=== PATIENT | male | born 1990 | race Caucasian/White ===

== ENCOUNTER → 2016-07-06 | Outpatient (CLI) | payer OTHER ==
--- NOTE | 2016-07-06 15:31 | XR ---
EXAMINATION TYPE: XR hand complete LT DATE OF EXAM: 07/06/2016 3:27 PM COMPARISON: NONE HISTORY: Pain TECHNIQUE: Three views are submitted. FINDINGS: The osseous structures are intact. The joint spaces are preserved and there is no acute fracture or dislocation. The soft tissues of the distal phalanx of the second digit there is radiopaque material which may represent foreign body. Correlate clinically. This may be artifactual as it is not clearly depicted on the additional images. IMPRESSION: 1. No definite acute fracture or dislocation if symptoms persist, follow-up study in 7 to 10 days wo uld be suggested. 2. Overlying the volar soft tissues of the distal phalanx second digit there is radiopaque material w hich may be artifactual rather than related to foreign body correlate clinically.
--- NOTE | 2016-07-06 15:32 | XR ---
EXAMINATION TYPE: XR wrist complete LT DATE OF EXAM: 07/06/2016 3:27 PM COMPARISON: NONE HISTORY: Pain TECHNIQUE: Four views submitted. FINDINGS: The osseous structures are intact. The joint spaces are preserved and there is no acute fracture or dislocation. IMPRESSION: 1. No definite acute fracture or dislocation if symptoms persist, follow-up study in 7 to 10 days wo uld be suggested
== END | disposition home or self-care (01) ==
LOC: RADXRMAIN 15:06
PROVIDERS: ATTEND Emergency Medicine
DX: S67.22XA Crushing injury of left hand, initial encounter (principal)

== ENCOUNTER 2016-09-10 18:11 | Emergency (ER) | payer OTHER ==
--- NOTE | 2016-09-10 19:06 | ED ---
Upper Extremity HPI - General Chief Complaint: Extremity Injury, Upper Stated Complaint: Shoulder/Back Pain [facility] Time Seen by Provider: 09/10/16 18:48 Source: patient, RN notes reviewed, old records reviewed Mode of arrival: ambulatory Limitations: no limitations - History of Present Illness Initial Comments: 25-year-old male presents emergency Department chief complaint of left shoulder pain. Patient reports that he was at work and he was trying to catch himself from a fall. Patient reports he fell with his left arm straight out and felt a shooting pain from his hand to his shoulder. He reports that he felt a snap and a pop in his shoulder. He states the pain is between shoulder blades and his spine. - Related Data Previous Rx's Medication Instructions Recorded Cyclobenzaprine [Flexeril] 10 mg PO TID #12 tab 09/10/16 Ibuprofen [Motrin] 600 mg PO Q8HR PRN #20 tab 09/10/16 Allergies Allergy/AdvReac Type Severity Reaction Status Date / Time No Known Allergies Allergy Verified 09/10/16 18:46 Review of Systems ROS Statement: Those systems with pertinent positive or pertinent negative responses have been documented in the HPI. ROS Other: All systems not noted in ROS Statement are negative. Past Medical History Past Medical History: No Reported History History of Any Multi-Drug Resistant Organisms: None Reported Past Surgical History: No Surgical Hx Reported Past Psychological History: No Psychological Hx Reported Smoking Status: Current every day smoker Past Alcohol Use History: Occasional Past Drug Use History: None Reported General Exam - General Exam Comments Initial Comments: 25-year-old male. No acute distress. Limitations: no limitations General appearance: alert, in no apparent distress Head exam: Present: atraumatic, normocephalic, normal inspection Eye exam: Present: normal appearance, PERRL, EOMI. Absent: scleral icterus, conjunctival injection, periorbital swelling ENT exam: Present: normal exam, mucous membranes moist Neck exam: Present: normal inspection. Absent: tenderness, meningismus, lymphadenopathy Respiratory exam: Present: normal lung sounds bilaterally. Absent: respiratory distress, wheezes, rales, rhonchi, stridor Cardiovascular Exam: Present: regular rate, normal rhythm, normal heart sounds. Absent: systolic murmur, diastolic murmur, rubs, gallop, clicks GI/Abdominal exam: Present: soft, normal bowel sounds. Absent: distended, tenderness, guarding, rebound, rigid Extremities exam: Present: normal inspection, full ROM, normal capillary refill. Absent: tenderness, pedal edema, joint swelling, calf tenderness Left Shoulder Exam: Present: normal inspection, full ROM, tenderness (Patient has some tenderness between the left shoulder blade and the thoracic spine.) Upper Arm exam: Present: normal inspection, full ROM Elbow exam: Present: normal inspection, full ROM Forearm Wrist exam: Present: normal inspection, full ROM Hand Wrist exam: Present: normal inspection, full ROM Back exam: Present: normal inspection Neurological exam: Present: alert, oriented X3, CN II-XII intact Course Vital Signs 09/10/16 18:44 Temperature 97.8 F Pulse Rate 70 Respiratory 20 Rate Blood Pressure 119/73 O2 Sat by Pulse 98 Oximetry Disposition Clinical Impression: Left shoulder strain Disposition: HOME SELF-CARE Condition: Good Instructions: Shoulder Sprain (ED) Additional Instructions: Patient is to rest, apply ice over the shoulder. Return to the emergency department if any alarming signs or symptoms occur. Prescriptions: Cyclobenzaprine [Flexeril] 10 mg PO TID #12 tab Ibuprofen [Motrin] 600 mg PO Q8HR PRN #20 tab PRN Reason: Pain Referrals: None,Stated [Primary Care Provider] - 1-2 days Beth Power MD [STAFF PHYSICIAN] - 1-2 days Time of Disposition: 20:15
--- NOTE | 2016-09-10 20:03 | XR ---
EXAMINATION TYPE: XR shoulder complete LT DATE OF EXAM: 09/10/2016 COMPARISON: NONE HISTORY: Shoulder pain TECHNIQUE: 3 views FINDINGS: I see no fracture nor dislocation. Joint spaces are normal. There are no pathologic calcifi cations. IMPRESSION: Normal left shoulder
--- NOTE | 2016-09-10 20:04 | XR ---
EXAMINATION TYPE: XR thoracic spine 2V DATE OF EXAM: 09/10/2016 COMPARISON: NONE HISTORY: Pain TECHNIQUE: 3 views FINDINGS: Thoracic vertebra have normal spacing and alignment. Posterior elements are intact. There i s no paraspinal mass. There is no compression fracture. IMPRESSION: Normal thoracic spine.
[2016-09-10] MEDS ORDERED: CYCLOBENZAPRINE 10MG STARTER 3 TAB BTL PO STA (20:20)
[2016-09-10] MEDS ORDERED: ACET/COD 300 MG/30 MG STARTER PACK 6 TAB BTL PO STA (20:20)
[2016-09-10 20:35] VITALS: BP 125/75; PULSE 72; RESP 18; TEMP 98
== END 2016-09-10 20:35 | disposition home or self-care (01) ==
LOC: EC 18:11
DX: S46.912A Strain of unspecified muscle, fascia and tendon at shoulder and upper arm level, left arm, initial encounter (principal); F17.200 Nicotine dependence, unspecified, uncomplicated; X50.9XXA Other and unspecified overexertion or strenuous movements or postures, initial encounter; Y93.89 Activity, other specified; Y99.0 Civilian activity done for income or pay; Y92.69 Other specified industrial and construction area as the place of occurrence of the external cause
CPT/HCPCS: 72070; 99284

== ENCOUNTER → 2016-09-14 | Outpatient (CLI) | payer OTHER ==
--- NOTE | 2016-09-14 10:52 | XR ---
Cervical spine HISTORY: Cervical sprain, S13.4XXA 5 views of the cervical spine No comparisons There is no significant foraminal encroachment. Cervical vertebral bodies show preserved height and a lignment. Disc spaces and prevertebral soft tissues are normal. IMPRESSION: No acute osseous abnormality.
== END | disposition home or self-care (01) ==
LOC: RADXRMAIN 10:22
PROVIDERS: ATTEND Emergency Medicine
DX: S13.4XXA Sprain of ligaments of cervical spine, initial encounter (principal)
CPT/HCPCS: 72050

== ENCOUNTER 2016-12-20 14:42 | Inpatient (IN) | payer OTHER ==
[2016-12-20] MEDS ORDERED: RX INFO: IV CONTRAST WAS GIVEN 1 EACH MISC MISCELLANE PRN (15:13)
[2016-12-20] MEDS ORDERED: MORPHINE SULFATE 10 MG/ML SYRINGE IV STA (15:13)
[2016-12-20] MEDS ORDERED: ONDANSETRON 4 MG/2 ML VIAL IVP STA (15:13)
[2016-12-20] MEDS ORDERED: PANTOPRAZOLE 40 MG/10 ML VIAL IVP STA (15:13)
[2016-12-20 15:38] LABS: Basophils % (A) 0 %; CH 30.6; CHCM 34.1; Eosinophils # (A) 0.2 k/uL (0-0.7); Eosinophils % (A) 1 %; HCT 43.3 % (39.0-53.0); HDW 2.23; HGB 14.5 gm/dL (13.0-17.5); Luc # (Auto) 0.12; Luc % (Auto) 1; Lymphocytes % (A) 19 %; MCH 30.3 pg (25.0-35.0); MCHC 33.5 g/dL (31.0-37.0); MCV 90.4 fL (80.0-100.0); Monocytes # (A) 0.6 k/uL (0-1.0); Monocytes % (A) 6 %; Neutrophils # (A) 7.7 k/uL (1.3-7.7); Neutrophils % (A) 73 %; RBC 4.79 m/uL (4.30-5.90); RDW 14.3 % (11.5-15.5); WBC 10.5 k/uL (3.8-10.6); WBC (Perox) 10.89
[2016-12-20 15:47] LABS: ALT 31 U/L (21-72); AST 26 U/L (17-59); Alkaline Phosphatase 56 U/L (38-126); Amylase 145 U/L (30-110); Anion Gap 9 mmol/L; Blood Urea Nitrogen 17 mg/dL (9-20); Calcium 9.7 mg/dL (8.4-10.2); Carbon Dioxide 26 mmol/L (22-30); Chloride 105 mmol/L (98-107); Glucose 82 mg/dL (74-99); Non-African American GFR(MDRD) >60 (>60 ml/min/1.73 sqM); Potassium 4.1 mmol/L (3.5-5.1); Sodium 140 mmol/L (137-145); Total Bilirubin 0.6 mg/dL (0.2-1.3); Total Protein 7.1 g/dL (6.3-8.2)
--- NOTE | 2016-12-20 16:02 | CT ---
EXAMINATION TYPE: CT abdomen pelvis w con DATE OF EXAM: 12/20/2016 COMPARISON: NONE HISTORY: Patient complains of epigastric pain, nausea, vomiting, and diarrhea. CT DLP: 459.3 mGycm Automated exposure control for dose reduction was used. TECHNIQUE: Helical acquisition of images from the lung bases through the pelvis have been completed. CONTRAST: Performed without Oral Contrast and with IV Contrast, patient injected with 100 mL of Omnipaque 300. FINDINGS: At the origin of celiac axis there is a focal area of low-attenuation seen on axial image 1 7, sagittal image 59. Question origin stenosis of the celiac axis. LUNG BASES: No significant abnormality is appreciated. AORTA: No significant abnormality is appreciated. LIVER/GB: No significant abnormality is appreciated. PANCREAS: No significant abnormality is seen. SPLEEN: No significant abnormality is seen. ADRENALS: No significant abnormality is seen. KIDNEYS: No significant abnormality is seen. REPRODUCTIVE ORGANS: No significant abnormality is seen BOWEL: Fluid-filled loops of small and large bowel are present. The appendix is normal. FREE AIR: No Free Air visible. ASCITES: None visible. PELVIC ADENOPATHY: None visualized. RETROPERITONEAL ADENOPATHY: No Retroperitoneal Adenopathy visible. URINARY BLADDER: No significant abnormality is seen. OSSEOUS STRUCTURES: No significant abnormality is seen. IMPRESSION: CORRELATE FOR ENTERITIS. INDETERMINATE ABNORMAL DENSITY AT THE ORIGIN OF THE CELIAC AXIS, THERE COULD BE A PROXIMAL STENOSIS, POST STENOTIC DILATATION, DIFFICULT TO EXCLUDE A SMALL EMBOLUS. CONSIDER RSUS ALEJANDRA CONSULT. Report relayed to Dr. Canada telephonically at the time of interpretation.
[2016-12-20] MEDS ORDERED: diphenhydrAMINE 50 MG/ML 1 ML VIAL IVP STA (16:28)
[2016-12-20] MEDS ORDERED: NALOXONE 0.4 MG/ML 1 ML VIAL IV PRN (16:49)
--- NOTE | 2016-12-20 16:49 | ED ---
Abdominal Pain HPI - General Chief Complaint: Abdominal Pain Stated Complaint: abdominal pain/vomiting blood Time Seen by Provider: 12/20/16 14:55 Source: patient Mode of arrival: ambulatory Limitations: no limitations - History of Present Illness Initial Comments: Patient presents with abdominal pain. He also has nausea. Pain is epigastric. It does not radiate anywhere. Nothing makes it better or worse. He denies any chest pain. He has no diarrhea. He has no blood in the stool. He has no black or tarry stool. He had some vomiting, and thought there was some blood in the. He has no neck pain or stiffness. He has no headache. - Related Data Home Medications Medication Instructions Recorded Confirmed No Known Home Medications [No 12/20/16 12/20/16 Known Home Medications] Allergies Allergy/AdvReac Type Severity Reaction Status Date / Time No Known Allergies Allergy Verified 12/20/16 15:06 Review of Systems ROS Statement: Those systems with pertinent positive or pertinent negative responses have been documented in the HPI. ROS Other: All systems not noted in ROS Statement are negative. Past Medical History Past Medical History: No Reported History History of Any Multi-Drug Resistant Organisms: None Reported Past Surgical History: No Surgical Hx Reported Past Psychological History: No Psychological Hx Reported Smoking Status: Current every day smoker Past Alcohol Use History: None Reported Past Drug Use History: None Reported General Exam Limitations: no limitations General appearance: alert, in no apparent distress Head exam: Present: atraumatic, normocephalic, normal inspection Eye exam: Present: normal appearance, PERRL, EOMI. Absent: scleral icterus, conjunctival injection, periorbital swelling ENT exam: Present: normal exam, mucous membranes moist Neck exam: Present: normal inspection. Absent: tenderness, meningismus, lymphadenopathy Respiratory exam: Present: normal lung sounds bilaterally. Absent: respiratory distress, wheezes, rales, rhonchi, stridor Cardiovascular Exam: Present: regular rate, normal rhythm, normal heart sounds. Absent: systolic murmur, diastolic murmur, rubs, gallop, clicks GI/Abdominal exam: Present: soft, tenderness, normal bowel sounds. Absent: distended, guarding, rebound, rigid Extremities exam: Present: normal inspection, full ROM, normal capillary refill. Absent: tenderness, pedal edema, joint swelling, calf tenderness Back exam: Present: normal inspection Neurological exam: Present: alert, oriented X3, CN II-XII intact Psychiatric exam: Present: normal affect, normal mood Skin exam: Present: warm, dry, intact, normal color. Absent: rash Course Vital Signs 12/20/16 14:51 Temperature 98.6 F Pulse Rate 86 Respiratory 18 Rate Blood Pressure 134/72 O2 Sat by Pulse 98 Oximetry Medical Decision Making - Medical Decision Making Patient presents with abdominal pain. CBC and electrolytes are normal. CAT scan reveals a suspicious finding at the celiac region. Additionally, his pancreas enzymes are extremely elevated. I'm giving the patient IV fluids. He will be admitted to the hospital for further evaluation and management of these multiple conditions. - Lab Data Result diagrams: 12/20/16 15:25 12/20/16 15:25 Lab Results 12/20/16 12/20/16 Range/Units 15:25 15:25 WBC 10.5 (3.8-10.6) k/uL RBC 4.79 (4.30-5.90) m/uL Hgb 14.5 (13.0-17.5) gm/dL Hct 43.3 (39.0-53.0) % MCV 90.4 (80.0-100.0) fL MCH 30.3 (25.0-35.0) pg MCHC 33.5 (31.0-37.0) g/dL RDW 14.3 (11.5-15.5) % Plt Count 185 (150-450) k/uL Neutrophils % 73 % Lymphocytes % 19 % Monocytes % 6 % Eosinophils % 1 % Basophils % 0 % Neutrophils # 7.7 (1.3-7.7) k/uL Lymphocytes # 2.0 (1.0-4.8) k/uL Monocytes # 0.6 (0-1.0) k/uL Eosinophils # 0.2 (0-0.7) k/uL Basophils # 0.0 (0-0.2) k/uL Sodium 140 (137-145) mmol/L Potassium 4.1 (3.5-5.1) mmol/L Chloride 105 (98-107) mmol/L Carbon Dioxide 26 (22-30) mmol/L Anion Gap 9 mmol/L BUN 17 (9-20) mg/dL Creatinine 1.06 (0.66-1.25) mg/dL Est GFR (MDRD) Af Amer >60 (>60 ml/min/1.73 sqM) Est GFR (MDRD) Non-Af >60 (>60 ml/min/1.73 sqM) Glucose 82 (74-99) mg/dL Calcium 9.7 (8.4-10.2) mg/dL Total Bilirubin 0.6 (0.2-1.3) mg/dL AST 26 (17-59) U/L ALT 31 (21-72) U/L Alkaline Phosphatase 56 (38-126) U/L Total Protein 7.1 (6.3-8.2) g/dL Albumin 4.3 (3.5-5.0) g/dL Amylase 145 H (30-110) U/L Lipase 1223 H (23-300) U/L Disposition Clinical Impression: Pancreatitis Disposition: ADMITTED IP TO THIS HOSP Condition: Fair Referrals: Huan Rivera MD [Primary Care Provider] - 1-2 days Time of Disposition: 16:49
[2016-12-20] MEDS: DEXTROSE 5%-0.9% NACL 1,000 ML IV SCH (18:34)
[2016-12-20] MEDS: MORPHINE SULFATE 10 MG/ML SYRINGE IV PRN (18:34)
[2016-12-20] MEDS: traMADol 50 MG TAB PO PRN (21:54)
[2016-12-20] MEDS: NICOTINE 21MG/24HR PATCH TRANSDERM SCH (21:54)
[2016-12-21] MEDS: MORPHINE SULFATE 10 MG/ML SYRINGE IV PRN ×6 (00:48→23:32)
[2016-12-21] MEDS: ONDANSETRON 4 MG/2 ML VIAL IVP PRN ×3 (00:49→18:34)
[2016-12-21] MEDS: diphenhydrAMINE 25 MG CAP PO PRN ×2 (05:35→21:36)
[2016-12-21] MEDS: DEXTROSE 5%-0.9% NACL 1,000 ML IV SCH ×4 (05:35→23:33)
[2016-12-21] MEDS: PANTOPRAZOLE 40 MG/10 ML VIAL IV SCH (08:19)
[2016-12-21] MEDS: NICOTINE 21MG/24HR PATCH TRANSDERM SCH ×2 (08:20→11:11)
--- NOTE | 2016-12-21 19:24 | P.HPIM ---
History of Present Illness H&P Date: 12/21/16 Chief Complaint: Abdominal pain with intractable nausea vomiting This is a relatively healthy 26-year-old gentleman who presents to the emergency room with chief complaint of nausea vomiting and severe abdominal pain. Patient stated that his symptoms began on 12/17/2016 he stated it will come up suddenly when he started experiencing persistent nausea or vomiting initially it was bilious than nonbilious and then was lio blood patient described it to being red with gelatinous-type consistency. Patient symptoms persisted throughout the day on Tuesday and into Tuesday patient started developing severe abdominal pain located in epigastric region as well as nonradiating he described a 1010 intensity as it felt like his get repeatedly punched. 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 and sent him home patient waited this out on Tuesday and Tuesday his /significant other convince him to come to the hospital for further evaluation in the ER O's over the patient's white count was 10.5 kg 14.5 for count 185 his amylase was 145 his lipase [address] abdomen with IV contrast that showed enteritis into [place] abnormal density in the origin of the celiac access echo be a proximal stenosis post stenotic dilation which was difficult to exclude a small embolus which recommended a surgical consult patient does not have any history of blood clots or family history of blood clots patient is an active smoker however does not drink alcohol his last drink was 3 weeks ago patient was seen and admitted surgical unit he states his pain is somewhat improved he has no longer nausea or vomiting and said patient is asking for diet Review of Systems Constitutional: Denies daytime sleepiness, Denies fever, Denies malaise, Denies night sweats, Denies poor appetite, Denies sweats, Denies weakness, Denies weight gain, Denies weight loss Eyes: denies blurred vision, denies pain Ears, nose, mouth and throat: Denies headache, Denies sore throat Cardiovascular: Denies chest pain, Denies claudication, Denies decreased exercise tolerance, Denies dyspnea on exertion, Denies edema, Denies irregular heart beat, Denies lightheadedness, Denies palpitations, Denies shortness of breath, Denies syncope Respiratory: Denies congestion, Denies cough, Denies cough with sputum, Denies excessive sputum, Denies hemoptysis, Denies home oxygen, Denies respiratory infections, Denies sleep apnea, Denies snoring, Denies wheezing Gastrointestinal: Reports abdominal pain, Reports belching, Reports hematemesis , Reports nausea, Reports vomiting, Denies change in bowel habits, Denies coffee ground emesis, Denies constipation, Denies diarrhea, Denies hematochezia , Denies melena Genitourinary: Reports as per HPI Musculoskeletal: Reports as per HPI Integumentary: Denies pruritus, Denies rash Neurological: Denies change in mentation, Denies confusion, Denies memory loss, Denies migraines, Denies numbness, Denies weakness Psychiatric: Reports as per HPI Hematologic/Lymphatic: Denies easy bleeding, Denies easy bruising, Denies lymphadenopathy Past Medical History Past Medical History: No Reported History History of Any Multi-Drug Resistant Organisms: None Reported Past Surgical History: No Surgical Hx Reported Additional Past Surgical History / Comment(s): WISDOME TEETH EXTRACTED Past Anesthesia/Blood Transfusion Reactions: No Reported Reaction Smoking Status: Current every day smoker Additional Past Alcohol Use History / Comment(s): Patient uses drink heavily, he has cut down considerably and that is confirmed by significant other last drink was 3 weeks ago - Past Family History Father Family Medical History: Diabetes Mellitus, Hypertension Mother Family Medical History: Cancer Medications and Allergies Home Medications Medication Instructions Recorded Confirmed Type No Known Home Medications [No 12/20/16 12/20/16 History Known Home Medications] Allergies Allergy/AdvReac Type Severity Reaction Status Date / Time No Known Allergies Allergy Verified 12/20/16 15:06 Physical Exam Vitals: Vital Signs Temp Pulse Resp BP Pulse Ox 12/21/16 15:10 97.1 F L 71 20 102/52 99 12/21/16 07:00 97.1 F L 83 20 102/77 99 12/20/16 23:00 96.9 F L 70 19 112/57 97 Intake and Output 12/21/16 12/21/16 12/21/16 06:59 14:59 22:59 Other: # Voids 1 2 - Constitutional General appearance: average body habitus, cooperative, no mild distress, no acute distress - EENT Eyes: EOMI, PERRLA, normal appearance ENT: NA/AT - Neck Neck: no lymphadenopathy, normal ROM - Respiratory Respiratory: bilateral: CTA, negative: diminished, dullness, rales, rhonchi, wheezing, prolonged expiration, prolonged inspiration, other - Cardiovascular Rhythm: regular Heart sounds: normal: S1, S2 - Gastrointestinal General gastrointestinal: decreased bowel sounds, no distended, no hepatomegaly , no hyperactive bowel sounds, no rigid, no scaphoid, soft, tenderness Localized gastrointestinal: tender: epigastric periumbilical, guarding: epigastric periumbilical, rebound: epigastric periumbilical - Integumentary Integumentary: no calor, no cellulitis, no cyanotic, no decreased turgor, no flushed, no jaundiced, no normal, no normal turgor, no pale, no rash, no ulcer - Neurologic Neurologic: CNII-XII intact - Musculoskeletal Musculoskeletal: gait normal, strength equal bilaterally - Psychiatric Psychiatric: A&O x's 3, appropriate affect, intact judgment & insight Results CBC & Chem 7: 12/20/16 15:25 12/20/16 15:25 CT scan - abdomen: report reviewed Thrombosis Risk Factor Assmnt - Choose All That Apply Any of the Below Risk Factors Present?: Yes Each Factor Represents 1 point: Obesity (BMI >25) Other Risk Factors: No Other congenital or acquired thrombophilia - If yes, enter type in comment: No Thrombosis Risk Factor Assessment Total Risk Factor Score: 1 Thrombosis Risk Factor Assessment Level: Low Risk Assessment and Plan Assessment: #1 acute pancreatitis, patient remained nothing by mouth continue with IV pain medications continue the fluid hydration patient have a right upper quadrant ultrasound to rule out gallstone pancreatitis. #2 recent hematemesis, this is likely due to Kavya-Pittman tear from persistent nausea vomiting will have to consult GI for possible endoscopy for further evaluation will continue to monitor his H&H patient to remain nothing by mouth until [place] by GI if her diet will be initiated and will be clears no reds. Patient placed on PPI in the form of Protonix 40 mg IV twice a day #3 ongoing tobacco use and abusepatient was counseled for than 10 minutes regarding the half affects of tobacco on his overall health he was encouraged to quit Further clinicians to follow up in his overall progress Time with Patient: Greater than 30
[2016-12-22] MEDS: traMADol 50 MG TAB PO PRN ×2 (04:29→11:41)
[2016-12-22] MEDS: MORPHINE SULFATE 10 MG/ML SYRINGE IV PRN ×2 (06:11→12:56)
[2016-12-22] MEDS: ONDANSETRON 4 MG/2 ML VIAL IVP PRN ×2 (06:11→14:04)
[2016-12-22] MEDS: DEXTROSE 5%-0.9% NACL 1,000 ML IV SCH (07:32)
[2016-12-22] MEDS: PANTOPRAZOLE 40 MG/10 ML VIAL IV SCH (07:32)
[2016-12-22] MEDS: NICOTINE 21MG/24HR PATCH TRANSDERM SCH (07:32)
[2016-12-22 08:08] VITALS: BP 115/69; PULSE 65; RESP 18; TEMP 97.3
--- NOTE | 2016-12-22 09:08 | US ---
EXAMINATION TYPE: US abdomen limited DATE OF EXAM: 12/22/2016 COMPARISON: NONE CLINICAL HISTORY: Pancreatitis. EXAM MEASUREMENTS: Liver Length: 13.2 cm Gallbladder Wall: 0.3 cm CBD: 0.1 cm Right Kidney: 10.2 x4.4 x 5.3m Pancreas: Pancreatic echotexture is slightly hypoechoic in comparison to that of the liver diffusely . No pancreatic ductal dilatation and the visualized portions of the pancreas. No surrounding fluid c ollections or pancreatic parenchymal calcifications are present. Liver: wnl . Homogeneous echotexture. Gallbladder: wnl Evidence for sonographic Allen's sign: No CBD: wnl Right Kidney: No hydronephrosis or masses seen IMPRESSION: Diffusely mild decreased attenuation of the pancreatic parenchyma, which can be seen in a cute edematous pancreatitis. No surrounding fluid collections or ductal dilatation are seen. No pancr eatic parenchymal calcifications indicate chronic pancreatic changes.
[2016-12-22 10:04] LABS: CH 30.1; CHCM 33.1; HCT 39.9 % (39.0-53.0); HDW 2.26; HGB 13.3 gm/dL (13.0-17.5); MCH 30.4 pg (25.0-35.0); MCHC 33.3 g/dL (31.0-37.0); MCV 91.4 fL (80.0-100.0); RBC 4.37 m/uL (4.30-5.90); WBC 5.8 k/uL (3.8-10.6)
[2016-12-22 10:18] LABS: Magnesium 1.8 mg/dL (1.6-2.3); Phosphorus 4.4 mg/dL (2.5-4.5); Potassium 4.3 mmol/L (3.5-5.1)
--- NOTE | 2016-12-22 11:27 | P.CONS ---
History of Present Illness - Reason for Consult Consult date: 12/22/16 Pancreatitis Requesting physician: Chacha Alejandra - History of Present Illness 26-year-old male admitted with nausea vomiting upper abdominal pain 6 days. No history of this type of pain. Denies hematemesis hematochezia melena. Consult requested for acute pancreatitis. White count 10.5. Hemoglobin 14.5. LFTs normal. Amylase 145. Lipase 1223. History of remote EtOH abuse. Last alcohol drink 4 weeks ago at a friend's wedding. No history of autoimmune disorders. No illicit drug use. No over-the -counter or newly prescribed medications. CT abdomen and pelvis no significant abnormality appreciated within the liver, gallbladder, pancreas, or spleen. Possible enteritis. Indeterminate abnormal density at the origin of the celiac axis could be a proximal stenosis poststenotic dilatation difficult to exclude small embolus. Review of Systems Constitutional: Denies fever, chills, sweats, weight gain, or loss. HEENT: Negative for migraines, blurred vision or loss, earaches, drainage, tinnitus, oral mucosal lesions, dysphagia, or odynophagia. Cardiac: Negative for chest pain, arrhythmias, or palpitation. Respiratory: Negative for shortness of breath, hemoptysis, cough, or sputum production. Gastrointestinal: See HPI for pertinent findings. Genitourinary: Negative for hematuria, urgency, frequency, polyuria, dysuria, or penile discharge. Musculoskeletal: Negative for muscle aches, swelling, arthritis, and arthralgias. Neurologic: Negative for stroke or TIA. Endocrine: Negative for thyroid problems. Skin: Negative for rash or itching. Psychiatric: Negative history for depression and anxiety All systems: negative (See HPI) Past Medical History Past Medical History: No Reported History History of Any Multi-Drug Resistant Organisms: None Reported Past Surgical History: No Surgical Hx Reported Additional Past Surgical History / Comment(s): WISDOME TEETH EXTRACTED Past Anesthesia/Blood Transfusion Reactions: No Reported Reaction Smoking Status: Current every day smoker Additional Past Alcohol Use History / Comment(s): Patient uses drink heavily, he has cut down considerably and that is confirmed by significant other last drink was 3 weeks ago - Past Family History Father Family Medical History: Diabetes Mellitus, Hypertension Mother Family Medical History: Cancer Medications and Allergies Home Medications Medication Instructions Recorded Confirmed Type No Known Home Medications [No 12/20/16 12/20/16 History Known Home Medications] Allergies Allergy/AdvReac Type Severity Reaction Status Date / Time No Known Allergies Allergy Verified 12/20/16 15:06 Physical Exam Vitals: Vital Signs Temp Pulse Resp BP Pulse Ox 12/22/16 07:00 97.3 F L 65 18 115/69 97 12/21/16 23:00 97.7 F 66 16 107/62 97 12/21/16 15:10 97.1 F L 71 20 102/52 99 Intake and Output 12/21/16 12/22/16 12/22/16 22:59 06:59 14:59 Intake Total 0 0 Balance 0 0 Intake: Oral 0 0 Other: Voiding Method Toilet # Voids 1 1 General appearance: The patient is alert, oriented, in no acute distress. HET: Head is normocephalic and atraumatic. Pupils are equal and reactive. Oropharynx is clear without lesions. Neck: Supple without lymphadenopathy. Trachea midline. Heart: S1 S2. Regular rate and rhythm. Lungs: No crackles or wheezes are heard. Abdomen: Soft, a mild midepigastric tenderness, nondistended with bowel sounds. No peritoneal signs. No palpable organomegaly or masses. Extremities: Normal skin color and turgor. No cyanosis, rash, ulceration, clubbing, or edema. Radial and pedal pulses are 2/4 bilaterally. Neurological: No focal deficits. Strength and sensation are grossly intact. Results CBC & Chem 7: 12/22/16 09:19 12/22/16 09:19 CT scan - abdomen: report reviewed (Dr Ramírez) US - abdomen: report reviewed (Dr. 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 IV Protonix 40 mg daily. US abdomen reviewed no gallstones no biliary tree dilation CBD within normal limits. 2. Daily monitoring of pancreatic enzymes. If improved advance diet as tolerated. 3. Recommend Surgical consult for evaluation of abnormality seen in the celiac axis on CT possible artifactual will leave to medical service discretion. Case discussed with Dr. Shukr. 4. Will check triglyceride level. ELIZA. Subclass 1-4 IgG evaluate for autoimmune disease. Return to office in 2-3 weeks. discharge per medicine. Thank you for this kind referral and the opportunity to participate in the care of your patient. This consultation was discussed with Dr. Ramírez. The impression and plan of care have been directed as dictated.
--- NOTE | 2016-12-22 12:36 | P.DS ---
Providers Date of admission: 12/20/16 16:49 Expected date of discharge: 12/22/16 Attending physician: Chacha Alejandra Primary care physician: Stated None Hospital Course: This is a relatively healthy 26-year-old gentleman who presents to the emergency room with chief complaint of nausea vomiting and severe abdominal pain. Patient stated that his symptoms began on 12/17/2016 he stated it will come up suddenly when he started experiencing persistent nausea or vomiting initially it was bilious than nonbilious and then was lio blood patient described it to being red with gelatinous-type consistency. Patient symptoms persisted throughout the day on Tuesday and into Tuesday patient started developing severe abdominal pain located in epigastric region as well as nonradiating he described a 1010 intensity as it felt like his get repeatedly punched. Nothing me nothing seemed to make the pain better however everything he did made the pain worse in the ER O's the patient's white count was 10.5 HB14.5 amylase was 145 his lipase [address] abdomen with IV contrast that showed enteritis place on NPO and given IVF and IV pain medications His lipase normalized so did his pain, He was seen by GI for reported hemetemsis in which was thought to be Kavya Sarabia tear due to repeated emesis, His Hb remained stable, GI ordered work up for autoimmune pancreatitis, they advanced his diet in which he tolerated it and rec to follow up in office in 1 week, he was given script for Zofran Ultram and Pecid, he was discharged in stable condition. Discharge Diagnosis Idiopathic Pancreatitis Ongoing tobacco use and abuse Kavya sarabia tear Patient Condition at Discharge: Good Plan - Discharge Summary Discharge Rx Participant: No New Discharge Prescriptions: New Famotidine [Pepcid] 20 mg PO DAILY #30 tablet Ondansetron [Zofran ODT] 4 mg PO Q8HR PRN #20 tab PRN Reason: Nausea And Vomiting traMADol HCl [Ultram] 50 mg PO Q6H PRN #10 tab PRN Reason: Moderate Pain Discharge Medication List Famotidine [Pepcid] 20 mg PO DAILY #30 tablet 12/22/16 [Rx] Ondansetron [Zofran ODT] 4 mg PO Q8HR PRN #20 tab 12/22/16 [Rx] traMADol HCl [Ultram] 50 mg PO Q6H PRN #10 tab 12/22/16 [Rx] Follow up Appointment(s)/Referral(s): Huan Rivera MD [STAFF PHYSICIAN] - 1 Week Patient Instructions/Handouts: Pancreatitis (DC) Activity/Diet/Wound Care/Special Instructions: No smoking, cessation information provided. NO alcohol use. References given. Soft bland diet, advance as tolerated. Discharge Disposition: HOME SELF-CARE Pending Studies Pending Results: IgG4 ELIZA HbA1C
[2016-12-22 14:17] LABS: Glucose,Whole Blood 112 mg/dL (75-99)
[2016-12-22 16:45] LABS: ANA w/Reflex to Titer NEGATIVE (NEGATIVE)
[2016-12-23 15:31] LABS: IgG Subclass 3 9.9 mg/dL (11.0-85.0); IgG Subclass 4 83.5 mg/dL (3.0-175.0)
== END 2016-12-22 15:04 | disposition home or self-care (01) | DRG 242 ==
LOC: EC 14:42 → 4MS4W 16:49
PROVIDERS: ADMIT Internal Medicine; ATTEND Internal Medicine
DX: K22.6 Gastro-esophageal laceration-hemorrhage syndrome (principal); K85.90 Acute pancreatitis without necrosis or infection, unspecified; F17.200 Nicotine dependence, unspecified, uncomplicated; Z87.19 Personal history of other diseases of the digestive system; Z71.6 Tobacco abuse counseling; Z83.3 Family history of diabetes mellitus; Z82.49 Family history of ischemic heart disease and other diseases of the circulatory system
CPT/HCPCS: 36415; 74177; 76705; 80051; 80053; 82150; 82787; 83036; 83690; 83735; 84100; 84478; 85025; 85027; 86038; 96374; 96375; 99285

== ENCOUNTER 2018-05-17 12:52 | Emergency (ER) | payer OTHER ==
[2018-05-17] MEDS ORDERED: SODIUM CHLORIDE 0.9% 500 ML 500 ML IV STA (13:02)
[2018-05-17] MEDS ORDERED: DIPHENOX-ATROP STARTER PACK 8 TAB BTL PO STA ×2 (13:15→14:29)
--- NOTE | 2018-05-17 13:19 | ED ---
General Adult HPI - General Chief complaint: Abdominal Pain Stated complaint: chest pain Time Seen by Provider: 05/17/18 12:55 Source: patient, RN notes reviewed Mode of arrival: ambulatory Limitations: no limitations - History of Present Illness Initial comments: This is a 27-year-old male presents emergency Department with a past medical history of pancreatitis. Patient states in the past was because of heavy drinking but is not taking that anymore. Patient states he's had 2 days of epigastric abdominal pain and has vomited over the last 2 days he vomited this morning for the last time. Patient also had diarrhea for the last couple of days. Patient denies any chest pain. Patient denies any difficulty breathing first breath per patient denies any fever chills or cough. Patient denies headache patient denies numbness weakness. Patient denies lightheadedness dizziness or near syncopal episode. Patient denies any dysuria hematuria urin sherita frequency. - Related Data Previous Rx's Medication Instructions Recorded Ondansetron [Zofran] 4 mg PO Q8HR PRN #5 tab 05/17/18 Allergies Allergy/AdvReac Type Severity Reaction Status Date / Time No Known Allergies Allergy Verified 05/17/18 13:22 Review of Systems ROS Statement: Those systems with pertinent positive or pertinent negative responses have been documented in the HPI. ROS Other: All systems not noted in ROS Statement are negative. Past Medical History Past Medical History: No Reported History History of Any Multi-Drug Resistant Organisms: None Reported Past Surgical History: No Surgical Hx Reported Additional Past Surgical History / Comment(s): WISDOME TEETH EXTRACTED Past Anesthesia/Blood Transfusion Reactions: No Reported Reaction Past Psychological History: No Psychological Hx Reported Smoking Status: Current every day smoker Past Alcohol Use History: Rare Past Drug Use History: Marijuana - Past Family History Father Family Medical History: Diabetes Mellitus, Hypertension Mother Family Medical History: Cancer General Exam - General Exam Comments Initial Comments: GENERAL: Patient is well-developed and well-nourished. Patient is nontoxic and well- hydrated and is in mild distress. ENT: Neck is soft and supple. No significant lymphadenopathy is noted. Oropharynx is clear. Moist mucous membranes. Neck has full range of motion without eliciting any pain. EYES: The sclera were anicteric and conjunctiva were pink and moist. Extraocular movements were intact and pupils were equal round and reactive to light. Eyelids were unremarkable. PULMONARY: Unlabored respirations. Good breath sounds bilaterally. No audible rales rhonchi or wheezing was noted. CARDIOVASCULAR: There is a regular rate and rhythm without any murmurs gallops or rubs. ABDOMEN: Mild epigastric abdominal pain SKIN: Skin is clear with no lesions or rashes and otherwise unremarkable. NEUROLOGIC: Patient is alert and oriented x3. Cranial nerves II through XII are grossly intact. Motor and sensory are also intact. Normal speech, volume and content. Symmetrical smile. MUSCULOSKELETAL: Normal extremities with adequate strength and full range of motion. LYMPHATICS: No significant lymphadenopathy is noted PSYCHIATRIC: Normal psychiatric evaluation. Limitations: no limitations Course Vital Signs 05/17/18 12:54 Temperature 98.4 F Pulse Rate 85 Respiratory 18 Rate Blood Pressure 128/79 O2 Sat by Pulse 98 Oximetry Medical Decision Making - Medical Decision Making Patient's EKG shows normal sinus rhythm at 73 bpm NC interval is on a 26 QRS is 98 QT interval 364 QTC is 411. Patient's EKG shows no ST segment elevation or depression or T wave abnormalities are noted. Recent indicated to me that his mother had similar symptoms within the last week. Patient is feeling considerably better and has had no vomiting or diarrhea while in the emergency department - Lab Data Result diagrams: 05/17/18 13:16 05/17/18 13:16 Lab Results 05/17/18 05/17/18 05/17/18 Range/Units 13:16 13:16 13:16 WBC 6.2 (3.8-10.6) k/uL RBC 5.36 (4.30-5.90) m/uL Hgb 15.9 (13.0-17.5) gm/dL Hct 46.4 (39.0-53.0) % MCV 86.5 (80.0-100.0) fL MCH 29.7 (25.0-35.0) pg MCHC 34.3 (31.0-37.0) g/dL RDW 13.5 (11.5-15.5) % Plt Count 246 (150-450) k/uL Neutrophils % 60 % Lymphocytes % 30 % Monocytes % 5 % Eosinophils % 3 % Basophils % 1 % Neutrophils # 3.8 (1.3-7.7) k/uL Lymphocytes # 1.9 (1.0-4.8) k/uL Monocytes # 0.3 (0-1.0) k/uL Eosinophils # 0.2 (0-0.7) k/uL Basophils # 0.0 (0-0.2) k/uL Sodium 140 (137-145) mmol/L Potassium 4.6 (3.5-5.1) mmol/L Chloride 108 H (98-107) mmol/L Carbon Dioxide 23 (22-30) mmol/L Anion Gap 9 mmol/L BUN 15 (9-20) mg/dL Creatinine 0.88 (0.66-1.25) mg/dL Est GFR (CKD-EPI)AfAm >90 (>60 ml/min/1.73 sqM) Est GFR (CKD-EPI)NonAf >90 (>60 ml/min/1.73 sqM) Glucose 88 (74-99) mg/dL Calcium 10.0 (8.4-10.2) mg/dL Total Bilirubin 0.6 (0.2-1.3) mg/dL AST 27 (17-59) U/L ALT 40 (21-72) U/L Alkaline Phosphatase 63 (38-126) U/L Troponin I <0.012 (0.000-0.034) ng/mL Total Protein 7.5 (6.3-8.2) g/dL Albumin 4.6 (3.5-5.0) g/dL Amylase 48 (30-110) U/L Lipase 98 (23-300) U/L Urine Color Urine Appearance (Clear) Urine pH (5.0-8.0) Ur Specific [place] (1.001-1.035) Urine Protein (Negative) Urine Glucose (UA) (Negative) Urine Ketones (Negative) Urine Blood (Negative) Urine Nitrite (Negative) Urine Bilirubin (Negative) Urine Urobilinogen (<2.0) mg/dL Ur Leukocyte Esterase (Negative) Urine RBC (0-5) /hpf Urine WBC (0-5) /hpf Urine Bacteria (None) /hpf Urine Mucus (None) /hpf 05/17/18 Range/Units 13:20 WBC (3.8-10.6) k/uL RBC (4.30-5.90) m/uL Hgb (13.0-17.5) gm/dL Hct (39.0-53.0) % MCV (80.0-100.0) fL MCH (25.0-35.0) pg MCHC (31.0-37.0) g/dL RDW (11.5-15.5) % Plt Count (150-450) k/uL Neutrophils % % Lymphocytes % % Monocytes % % Eosinophils % % Basophils % % Neutrophils # (1.3-7.7) k/uL Lymphocytes # (1.0-4.8) k/uL Monocytes # (0-1.0) k/uL Eosinophils # (0-0.7) k/uL Basophils # (0-0.2) k/uL Sodium (137-145) mmol/L Potassium (3.5-5.1) mmol/L Chloride (98-107) mmol/L Carbon Dioxide (22-30) mmol/L Anion Gap mmol/L BUN (9-20) mg/dL Creatinine (0.66-1.25) mg/dL Est GFR (CKD-EPI)AfAm (>60 ml/min/1.73 sqM) Est GFR (CKD-EPI)NonAf (>60 ml/min/1.73 sqM) Glucose (74-99) mg/dL Calcium (8.4-10.2) mg/dL Total Bilirubin (0.2-1.3) mg/dL AST (17-59) U/L ALT (21-72) U/L Alkaline Phosphatase (38-126) U/L Troponin I (0.000-0.034) ng/mL Total Protein (6.3-8.2) g/dL Albumin (3.5-5.0) g/dL Amylase (30-110) U/L Lipase (23-300) U/L Urine Color Yellow Urine Appearance Clear (Clear) Urine pH 6.0 (5.0-8.0) Ur Specific [place] 1.019 (1.001-1.035) Urine Protein Negative (Negative) Urine Glucose (UA) Negative (Negative) Urine Ketones Negative (Negative) Urine Blood Trace H (Negative) Urine Nitrite Negative (Negative) Urine Bilirubin Negative (Negative) Urine Urobilinogen <2.0 (<2.0) mg/dL Ur Leukocyte Esterase Negative (Negative) Urine RBC 3 (0-5) /hpf Urine WBC <1 (0-5) /hpf Urine Bacteria Rare H (None) /hpf Urine Mucus Rare H (None) /hpf Disposition Clinical Impression: Gastroenteritis Disposition: HOME SELF-CARE Condition: Good Instructions (If sedation given, give patient instructions): Gastroenteritis (ED) Prescriptions: Ondansetron [Zofran] 4 mg PO Q8HR PRN #5 tab PRN Reason: Nausea Is patient prescribed a controlled substance at d/c from ED?: No Referrals: Irene Nava MD [Primary Care Provider] - 1-2 days Time of Disposition: 14:28
[2018-05-17 13:32] LABS: Appearance,Urine Clear (Clear); Bacteria,Urine Rare /hpf; Bilirubin,Urine Negative (Negative); Blood,Urine Trace (Negative); Color,Urine Yellow; Glucose,Urine (UA) Negative (Negative); Ketones,Urine Negative (Negative); Leukocyte Esterase,Urine Negative (Negative); Mucus,Urine Rare /hpf; Nitrite,Urine Negative (Negative); Protein,Urine Negative (Negative); RBC,Urine 3 /hpf (0-5); Specific Gravity,Urine 1.019 (1.001-1.035); Urobilinogen,Urine <2.0 mg/dL (<2.0); WBC,Urine <1 /hpf (0-5)
[2018-05-17 13:34] LABS: Basophils % (A) 1 %; Eosinophils # (A) 0.2 k/uL (0-0.7); Eosinophils % (A) 3 %; HCT 46.4 % (39.0-53.0); HGB 15.9 gm/dL (13.0-17.5); Lymphocytes # (A) 1.9 k/uL (1.0-4.8); Lymphocytes % (A) 30 %; MCH 29.7 pg (25.0-35.0); MCHC 34.3 g/dL (31.0-37.0); MCV 86.5 fL (80.0-100.0); Mean Platelet Volume 7.4; Monocytes # (A) 0.3 k/uL (0-1.0); Monocytes % (A) 5 %; Neutrophils # (A) 3.8 k/uL (1.3-7.7); Neutrophils % (A) 60 %; Platelet Count 246 k/uL (150-450); RBC 5.36 m/uL (4.30-5.90); RDW 13.5 % (11.5-15.5); WBC 6.2 k/uL (3.8-10.6)
[2018-05-17 13:37] LABS: ALT 40 U/L (21-72); AST 27 U/L (17-59); Albumin 4.6 g/dL (3.5-5.0); Alkaline Phosphatase 63 U/L (38-126); Amylase 48 U/L (30-110); Anion Gap 9 mmol/L; Blood Urea Nitrogen 15 mg/dL (9-20); Carbon Dioxide 23 mmol/L (22-30); Chloride 108 mmol/L (98-107); Glucose 88 mg/dL (74-99); Lipase 98 U/L (23-300); Potassium 4.6 mmol/L (3.5-5.1); Sodium 140 mmol/L (137-145); Total Bilirubin 0.6 mg/dL (0.2-1.3); Total Protein 7.5 g/dL (6.3-8.2)
[2018-05-17 14:52] VITALS: BP 118/79; PULSE 102; RESP 20; TEMP 97
== END 2018-05-17 14:41 | disposition home or self-care (01) ==
LOC: EC 12:52
DX: K52.9 Noninfective gastroenteritis and colitis, unspecified (principal); R07.9 Chest pain, unspecified; F17.200 Nicotine dependence, unspecified, uncomplicated; Z87.19 Personal history of other diseases of the digestive system
CPT/HCPCS: 36415; 80053; 81001; 82150; 83690; 84484; 85025; 93005; 99284